=== PATIENT | female | born 1995 | race American Indian/Alaskan Native ===

== ENCOUNTER 2017-09-24 20:11 | Emergency (ER) | payer BC ==
[2017-09-24 20:30] VITALS: BP 131/91
[2017-09-24] MEDS ORDERED: MOTRIN PO ONE (20:31)
[2017-09-24] MEDS ORDERED: ULTRAM PO ONE (22:46)
--- NOTE | 2017-09-24 22:46 | Emergency Department Report ---
ED ENT HPI - General Chief complaint: Earache Stated complaint: LEFT EAR PAIN Time Seen by Provider: 09/24/17 22:42 Source: patient Mode of arrival: Ambulatory Limitations: No Limitations - History of Present Illness Initial comments: 21-year-old [place] female comes in stating that she got a cotton from the Q- tip stuck in her left ear on Monday she then went to urgent care on Monday and had a examination and no foreign body was noted. Patient reports that they also flushed her ear as well. She reports they put her on ibuprofen and she is here today suffering from left ear pain and headache. She denies any purulent discharge from the ear she reports that the pain is worse if she opens her mouth she'll have pain shoot up to her head. Patient reports the pain as a 10 out of 10. She's never had this situation before. She denies having any concerns of her teeth. MD complaint: ear pain -: days(s) (5) Location: L ear Severity: severe Severity scale (0 -10): 10 Quality: aching, sharp Consistency: intermittent Improves with: other (resting her mouth) Worsens with: other (opening her mouth) Associated Symptoms: denies: fever - Related Data Previous Rx's Medication Instructions Recorded Last Taken Type Nitrofurantoin [place]/M-Cryst 100 mg PO Q12HR #14 capsule 01/31/14 02/04/14 09:00 Rx [Macrobid] Ondansetron [Zofran Odt] 4 mg PO Q8HR #14 tab.rapdis 02/05/14 Unknown Rx Amoxicillin 500 mg PO Q12H 7 Days #14 capsule 09/24/17 Unknown Rx traMADol [Ultram 50 MG tab] 50 mg PO Q6HR PRN #20 tablet 09/24/17 Unknown Rx Allergies Allergy/AdvReac Type Severity Reaction Status Date / Time No Known Allergies Allergy Verified 02/05/14 16:39 ED Dental HPI - General Chief complaint: Earache Stated complaint: LEFT EAR PAIN Time Seen by Provider: 09/24/17 22:42 Source: patient Mode of arrival: Ambulatory Limitations: No Limitations - Related Data Previous Rx's Medication Instructions Recorded Last Taken Type Nitrofurantoin [place]/M-Cryst 100 mg PO Q12HR #14 capsule 01/31/14 02/04/14 09:00 Rx [Macrobid] Ondansetron [Zofran Odt] 4 mg PO Q8HR #14 tab.rapdis 02/05/14 Unknown Rx Amoxicillin 500 mg PO Q12H 7 Days #14 capsule 09/24/17 Unknown Rx traMADol [Ultram 50 MG tab] 50 mg PO Q6HR PRN #20 tablet 09/24/17 Unknown Rx Allergies Allergy/AdvReac Type Severity Reaction Status Date / Time No Known Allergies Allergy Verified 02/05/14 16:39 ED Review of Systems ROS: Stated complaint: LEFT EAR PAIN Other details as noted in HPI ENT: ear pain Respiratory: denies: cough, shortness of breath, wheezing Cardiovascular: denies: chest pain, palpitations Endocrine: no symptoms reported Gastrointestinal: denies: abdominal pain, nausea, diarrhea Genitourinary: denies: urgency, dysuria, discharge Musculoskeletal: denies: back pain, joint swelling, arthralgia Skin: denies: rash, lesions Neurological: headache (left side that shoots and sharp) Psychiatric: denies: anxiety, depression Hematological/Lymphatic: denies: easy bleeding, easy bruising ED Past Medical Hx - Past Medical History Previous Medical History?: No - Surgical History Additional Surgical History: Urinary Bladder Stretching - Social History Smoking Status: Former Smoker Substance Use Type: None - Medications Home Medications: Home Medications Medication Instructions Recorded Confirmed Last Taken Type Nitrofurantoin [place]/M-Cryst 100 mg PO Q12HR #14 capsule 01/31/14 02/05/14 09:00 Rx [Macrobid] Ondansetron [Zofran Odt] 4 mg PO Q8HR #14 tab.rapdis 02/05/14 Unknown Rx Amoxicillin 500 mg PO Q12H 7 Days #14 capsule 09/24/17 Unknown Rx traMADol [Ultram 50 MG tab] 50 mg PO Q6HR PRN #20 tablet 09/24/17 Unknown Rx ED Physical Exam - General Limitations: No Limitations - Head Head exam: Present: atraumatic, normocephalic - Eye Eye exam: Present: normal appearance - Expanded ENT Exam Expanded TM/Canal exam: Erythema: Left TM Mouth exam: Present: normal external inspection Teeth exam: Present: normal inspection - Neck Neck exam: Present: tenderness (left), lymphadenopathy (left) ED Course Vital Signs 09/24/17 20:17 Temperature 97.8 F Pulse Rate 86 Respiratory 16 Rate Blood Pressure 131/91 O2 Sat by Pulse 100 Oximetry ED Medical Decision Making - Medical Decision Making Patient has been evaluated by this provider fast track. Patient was given ibuprofen 800 mg in triage I will give her trauma at all 50 mg in fast track Discussed the patient that I would discharge her on tramadol and prophylactically amoxicillin since she's had manual trauma to the ear while trying to remove wax/foreign object. Discussed the patient she should follow-up with the ear nose and throat doctor if there is no improvement by Monday. Patient verbalizes understanding Critical care attestation.: If time is entered above; I have spent that time in minutes in the direct care of this critically ill patient, excluding procedure time. ED Disposition Clinical Impression: Ear pain, left Disposition: - TO HOME OR SELFCARE Is pt being admited?: No Does the pt Need Aspirin: No Condition: Stable Instructions: Earache (ED) Additional Instructions: Complete antibiotics and take pain medication as prescribed. If her symptoms persist or gets worse please follow up with the ear nose and throat provider. Prescriptions: Amoxicillin 500 mg PO Q12H 7 Days #14 capsule traMADol [Ultram 50 MG tab] 50 mg PO Q6HR PRN #20 tablet PRN Reason: Pain Referrals: PRIMARY CAREMD [Primary Care Provider] - 3-5 Days [facility] [Provider Group] - 3-5 Days Forms: Work/School Release Form(ED), Accompanied Note
== END 2017-09-24 23:05 | disposition home or self-care (01) ==
LOC: ED 21:18
DX: H92.02 Otalgia, left ear (principal); R51 Headache; Z87.891 Personal history of nicotine dependence
CPT/HCPCS: 99282